=== PATIENT | female | born 1960 | race Caucasian/White ===

== ENCOUNTER 2017-11-07 17:28 | Emergency (ER) | payer OTHER ==
[~2017-11-07] VITALS: Ht 152.4 cm; Wt 73.7 kg
[~2017-11-07 17:28] MED LIST: GLU500 PO; MAC100 PO; ZESTRIL20 MG PO; ZOC20 PO
[2017-11-07 19:22] VITALS: BP 149/65
== END 2017-11-07 19:22 | disposition home or self-care (01) ==
LOC: ED 17:28
DX: H83.09 Labyrinthitis, unspecified ear (principal); I10 Essential (primary) hypertension; E11.9 Type 2 diabetes mellitus without complications
CPT/HCPCS: J1885; J2765; J8597